=== PATIENT | female | born 2000 | race Caucasian/White ===

== ENCOUNTER → 2023-01-03 | Outpatient (CLI) | payer OTHER ==
[2023-01-04 16:12] LABS: IgG P18 AB Absent (.); IgG P23 AB Absent (.); IgG P28 AB Absent (.); IgG P30 AB Absent (.); IgG P39 AB Absent (.); IgG P41 AB Present (.); IgG P45 AB Absent (.); IgG P66 AB Absent (.); IgG P93 AB Absent (.); IgM P23 AB Present (.); IgM P39 AB Absent (.); IgM P41 AB Present (.); LYME IgG WB INTERPRETATION Negative (.); LYME IgM WB INTERPRETATION Positive (.)
== END ==
LOC: M PLALAB 09:55
PROVIDERS: ATTEND Internal Medicine Infectious Disease
DX: A69.20 Lyme disease, unspecified (principal)